=== PATIENT | female | born 1955 | race Caucasian/White ===

== ENCOUNTER 2019-03-05 21:12 | Emergency (ER) | payer OTHER ==
[2019-03-05 22:27] LABS: Absolute Lymphocytes (CBC) 0.5 K/uL (0.7-4.9); Basophils % 0.3 % (0-1.3); Eosinophils % 3.5 % (0-4.4); Hematocrit 38.8 % (36.0-45.0); Lymphocytes % 8.3 % (15.3-44.8); MPV 9.2 fL (7.6-11.3); Monocytes % 9.8 % (3.3-12.3); RBC Red Blood Cell Count 4.34 M/uL (3.86-4.86)
[2019-03-05 22:30] LABS: Protime INR 0.98
[2019-03-05 22:58] LABS: ALT/SGPT 193 U/L (12-78); Albumin 3.2 g/dL (3.4-5.0); Alkaline Phosphatase 154 U/L (45-117); BUN Blood Urea Nitrogen 24 mg/dL (7-18); Bicarbonate 29 mmol/L (21-32); Bilirubin Direct 0.1 mg/dL (0-0.2); Bilirubin Total 0.4 mg/dL (0.2-1.0); Glucose Level 113 mg/dL (74-106); Magnesium 2.2 mg/dL (1.8-2.4); NT PRO-BNP 310 pg/mL (<125); Potassium 3.8 mmol/L (3.5-5.1); Protein, Total 6.8 g/dL (6.4-8.2); Sodium Level 143 mmol/L (136-145)
[2019-03-05 22:59] LABS: AST/SGOT 642 U/L (15-37); Troponin (Emerg Dept Use Only) 1.85 ng/mL (0.0-0.045)
[2019-03-06] MEDS ORDERED: ASPIRIN 81 MG CHEWABLE TABLET ONE (00:12)
--- NOTE | 2019-03-06 00:25 | EDPHYS ---
Physician Documentation [facility] Name: Hannah Astudillo Age: 63 yrs Sex: Female : 1955 Arrival Date: 03/05/2019 Time: 21:14 Bed 25 Private MD: ED Physician Guy Rojo HPI: 03/06 00:29 This 63 yrs old Female presents to ER via Wheelchair with complaints of gs Shortness Of Breath, Blurred Vision. 00:29 This 63 yrs old Female presents to ER via Wheelchair with complaints of gs Shortness Of Breath, Blurred Vision. 00:29 The patient has shortness of breath at rest, during heavy activity. Onset: The gs symptoms/episode began/occurred 2 day(s) ago, Thursday about 9 pm. Duration: The symptoms are continuous. The patient's shortness of breath is aggravated by exertion. Associated signs and symptoms: Pertinent positives: visual changes, Pertinent negatives: chest pain, diaphoresis, vomiting. Severity of symptoms: At their worst the symptoms were severe in the emergency department the symptoms are unchanged. The patient has experienced similar episodes in the past, a few times. oncologist in [place] 4 days ago. Historical: - Allergies: 03/05 21:16 No Known Allergies; la1 - Home Meds: 03/06 00:03 ProAir HFA 90 mcg/actuation inhalation HFAA 2 puffs as needed [Active]; Flonase 50 fc mcg/actuation Nasal spsn 1 spray as needed [Active]; loratadine 10 mg oral tab 1 tab daily prn [Active]; Chemo for Liver CA [Active]; - PMHx: 03/05 21:16 liver ca; Asthma; la1 - PSHx: 03/06 00:03 right chest wall port a cath; fc - Immunization history:: Adult Immunizations up to date. - Social history:: Smoking status: Patient uses tobacco products, smokes one-half pack cigarettes per day. - Ebola Screening: : No symptoms or risks identified at this time. ROS: 00:29 All other systems are negative. gs Exam: 00:29 Head/Face: Normocephalic, atraumatic. ENT: Nares patent. No nasal discharge, no gs septal abnormalities noted. Tympanic membranes are normal and external auditory canals are clear. Oropharynx with no redness, swelling, or masses, exudates, or evidence of obstruction, uvula midline. Mucous membranes moist. Neck: Trachea midline, no thyromegaly or masses palpated, and no cervical lymphadenopathy. Supple, full range of motion without nuchal rigidity, or vertebral point tenderness. No Meningismus. Chest/axilla: Normal chest wall appearance and motion. Nontender with no deformity. No lesions are appreciated. Respiratory: Lungs have equal breath sounds bilaterally, clear to auscultation and percussion. No rales, rhonchi or wheezes noted. No increased work of breathing, no retractions or nasal flaring. Abdomen/GI: Soft, non-tender, with normal bowel sounds. No distension or tympany. No guarding or rebound. No evidence of tenderness throughout. Back: No spinal tenderness. No costovertebral tenderness. Full range of motion. Skin: Warm, dry with normal turgor. Normal color with no rashes, no lesions, and no evidence of cellulitis. MS/ Extremity: Pulses equal, no cyanosis. Neurovascular intact. Full, normal range of motion. 00:29 Constitutional: The patient appears alert, awake. 00:29 Eyes: Extraocular movements: decrease upward downward gaze. binocular diploplia on exam. 00:29 Cardiovascular: Rate: tachycardic, Rhythm: regular, Pulses: no pulse deficits are appreciated, Edema: 1+ edema to level of left ankle and right ankle. 00:29 ECG was reviewed by the Attending Physician. 00:29 Neuro: Orientation: is normal, Cranial nerves: normal except eom, Motor: moves all fours, Sensation: no obvious gross deficits. Vital Signs: 03/05 21:19 BP 164 / 88; Pulse 88; Resp 16; Temp 97.6; Pulse Ox 97% on R/A; Weight 102.51 kg; la1 Height 5 ft. 5 in. (165.10 cm); 22:38 BP 152 / 65; Pulse 100; Resp 19; Pulse Ox 96% on R/A; rv 23:36 BP 122 / 57; Pulse 95; Resp 19; Pulse Ox 94% on R/A; rv 03/06 00:00 BP 111 / 66; Pulse 99; Resp 19; Pulse Ox 95% on R/A; rv 01:18 BP 125 / 76; Pulse 103; Resp 21; Temp 97.8; Pulse Ox 96% on R/A; rv 03/05 21:19 Body Mass Index 37.61 (102.51 kg, 165.10 cm) la1 NIH Stroke Scale Scores: 00:38 NIHSS Score: 0 gs MDM: 03/05 21:51 Patient medically screened. 03/06 00:29 Differential diagnosis: CHF exacerbation, Chronic Obstructive Pulmonary Disease gs Myocardial Infarction cva, neoplasm. Data reviewed: vital signs, nurses notes, lab test result(s), EKG, radiologic studies. Counseling: I had a detailed discussion with the patient and/or guardian regarding: the historical points, exam findings, and any diagnostic results supporting the discharge/admit diagnosis, the need to transfer to another facility. ED course: no tpa, no obvious stroke, outside window symptoms over 12 hours. 03/05 21:52 Order name: Basic Metabolic Panel; Complete Time: 23:05 03/05 21:52 Order name: CBC with Diff; Complete Time: 23: 03/05 21:52 Order name: LFT's; Complete Time: 23: 03/05 21:52 Order name: Magnesium; Complete Time: 23: 03/05 21:52 Order name: NT PRO-BNP; Complete Time: 23: 03/05 21:52 Order name: PT-INR; Complete Time: 23: 03/05 21:52 Order name: CT Head Brain wo Cont 03/05 21:52 Order name: Troponin (emerg Dept Use Only); Complete Time: 23:05 03/05 21:52 Order name: XRAY Chest (1 view) 03/05 21:52 Order name: EKG; Complete Time: 21:54 03/05 21:52 Order name: Cardiac monitoring; Complete Time: 22:32 03/05 21:52 Order name: EKG - Nurse/Tech; Complete Time: 22:32 03/05 21:52 Order name: IV Saline Lock; Complete Time: 22:32 03/05 21:52 Order name: Labs collected and sent; Complete Time: 22:32 03/05 21:52 Order name: O2 Per Protocol; Complete Time: 22:32 03/05 21:52 Order name: O2 Sat Monitoring; Complete Time: 22:32 EC:29 Rate is 103 beats/min. Rhythm is regular. [place] interval is normal. QRS interval is gs normal. No ST changes noted. Clinical impression: NSR w/ Non-specific ST/T Changes. Interpreted by me. Administered Medications: 00:06 Drug: Aspirin Chewable Tablet 324 mg Route: PO; rv 01:20 Follow up: Response: No adverse reaction rv 00:44 Drug: Atorvastatin 20 mg Route: PO; rv 01:20 Follow up: Response: No adverse reaction rv Disposition: 00:39 Critical Care:. gs Disposition: 03/06/19 00:24 Transfer ordered to [facility]. Diagnosis are Non-ST elevation (NSTEMI) myocardial infarction, Diplopia. - Reason for transfer: Higher level of care. - Accepting physician is changela. - Condition is Stable. - Problem is new. - Symptoms have improved. Critical care time excluding procedures: 00:39 Critical care time: Bedside Care: 10 minutes, Consultation: 10 minutes, Family gs Intervention: 10 minutes. Total time: 30 minutes NIH Stroke Scale - NIH Stroke Score Date: 03/06/2019 Time: 00:38 Total Score = 0 1a. Level of Consciousness (LOC) - 0(Alert) 1b. Level of Consciousness (LOC) (Year \T\ Age) - 0(Both) 1c. LOC Commands (Open \T\ Closes Eyes/Set Builder) - 0(Both) 2. Best Gaze (Lateral Gaze Paresis) - 0(Normal) 3. Visual Field Loss - 0(No visual loss) 4. Facial Palsy - 0(Normal) 5a. Left Arm: Motor (10-second hold) - 0(No drift) 5b. Right Arm: Motor (10-second hold) - 0(No drift) 6a. Left Leg: Motor (5-second hold - always test supine) - 0(No drift) 6b. Right Leg: Motor (5-second hold - always test supine) - 0(No drift) 7. Limb Ataxia (finger/nose \T\ heel/hebert - test with eyes open) - 0(Absent) 8. Sensory Loss (pinprick arms/legs/face) - 0(Normal) 9. Best Language: Aphasia (description/naming/reading) - 0(No aphasia) 10. Dysarthria (speech clarity - read or repeat words) - 0(Normal) 11. Extinction and Inattention (visual/tactile/auditory/spatial/personal) - 0(No abnormality) Initials: gs Signatures: Dispatcher [employer] Jackie Yu RN RN Miguel Layne RN RN la1 Guy Rojo MD MD gs Vicente, Ronaldo, RN RN rv Corrections: (The following items were deleted from the chart) 01:21 00:24 03/06/2019 00:24 Transfer ordered to [facility]. rv Diagnosis is Non-ST elevation (NSTEMI) myocardial infarction; Diplopia. Reason for transfer: Higher level of care. Accepting physician is changela. Condition is Stable. Problem is new. Symptoms have improved. gs
--- NOTE | 2019-03-06 00:25 | ER ---
Nurse's Notes [facility] Name: Hannah Astudillo Age: 63 yrs Sex: Female : 1955 Arrival Date: 03/05/2019 Time: 21:14 Bed 25 Private MD: Diagnosis: Non-ST elevation (NSTEMI) myocardial infarction;Diplopia Presentation: 03/05 21:16 Presenting complaint: Patient states: I am on optivo and I started having SOB and la1 visual changes yesterday. Pt reports it is like looking through a kaleidoscope. VAN negative. Transition of care: patient was not received from another setting of care. Onset of symptoms was March 05, 2019. Risk Assessment: Do you want to hurt yourself or someone else? Patient reports no desire to harm self or others. Initial Sepsis Screen: Does the patient meet any 2 criteria? No. Patient's initial sepsis screen is negative. Does the patient have a suspected source of infection? No. Patient's initial sepsis screen is negative. Care prior to arrival: None. 21:16 Method Of Arrival: Wheelchair la1 21:16 Acuity: RAUDEL 2 la1 Triage Assessment: 21:39 General: Appears in no apparent distress. uncomfortable. Respiratory: Reports shortness rv of breath at rest Onset: The symptoms/episode began/occurred gradually, the patient has mild shortness of breath. Historical: - Allergies: 21:16 No Known Allergies; la1 - Home Meds: 03/06 00:03 ProAir HFA 90 mcg/actuation inhalation HFAA 2 puffs as needed [Active]; Flonase 50 fc mcg/actuation Nasal spsn 1 spray as needed [Active]; loratadine 10 mg oral tab 1 tab daily prn [Active]; Chemo for Liver CA [Active]; - PMHx: 03/05 21:16 liver ca; Asthma; la1 - PSHx: 03/06 00:03 right chest wall port a cath; fc - Immunization history:: Adult Immunizations up to date. - Social history:: Smoking status: Patient uses tobacco products, smokes one-half pack cigarettes per day. - Ebola Screening: : No symptoms or risks identified at this time. Screenin/29 21:38 Abuse screen: Denies threats or abuse. Denies injuries from another. Nutritional rv screening: No deficits noted. Tuberculosis screening: No symptoms or risk factors identified. Fall Risk None identified. Assessment: 21:37 General: Appears in no apparent distress. uncomfortable, Behavior is calm, cooperative. rv Pain: Complains of pain in generalized. Neuro: Level of Consciousness is awake, alert, obeys commands, Oriented to person, place, time, situation. Cardiovascular: Patient's skin is warm and dry. Rhythm is regular. Respiratory: Airway is patent Respiratory effort is even, GI: Abdomen is round obese. : No signs and/or symptoms were reported regarding the genitourinary system. EENT: No signs and/or symptoms were reported regarding the EENT system. Derm: Skin is intact. Musculoskeletal: No signs and/or symptoms reported regarding the musculoskeletal system. 22:39 Reassessment: Patient appears in no apparent distress at this time. Patient and/or rv family updated on plan of care and expected duration. Pain level reassessed. Patient is alert, oriented x 3, equal unlabored respirations, skin warm/dry/pink. just came back from CT scan. awaiting result. Vital Signs: 21:19 BP 164 / 88; Pulse 88; Resp 16; Temp 97.6; Pulse Ox 97% on R/A; Weight 102.51 kg; la1 Height 5 ft. 5 in. (165.10 cm); 22:38 BP 152 / 65; Pulse 100; Resp 19; Pulse Ox 96% on R/A; rv 23:36 BP 122 / 57; Pulse 95; Resp 19; Pulse Ox 94% on R/A; rv 03/06 00:00 BP 111 / 66; Pulse 99; Resp 19; Pulse Ox 95% on R/A; rv 01:18 BP 125 / 76; Pulse 103; Resp 21; Temp 97.8; Pulse Ox 96% on R/A; rv 03/05 21:19 Body Mass Index 37.61 (102.51 kg, 165.10 cm) la1 NIH Stroke Scale Scores: 00:38 NIHSS Score: 0 ED Course: 03/05 21:14 Patient arrived in ED. as 21:17 Triage completed. la1 21:17 Arm band placed on left wrist. la1 21:20 Guy Rojo MD is Attending Physician. gs 21:22 Elie, Leonardo, RN is Primary Nurse. rv 21:38 Patient has correct armband on for positive identification. Bed in low position. Call rv light in reach. Side rails up X 1. Pulse ox on. NIBP on. 22:10 XRAY Chest (1 view) In Process Unspecified. EDMS 22:22 Initial lab(s) drawn, by me, sent to lab. Accessed Port-a-Cath. using accessed w/ # 20 rv Yen needle, ,sterile technique, per hospital protocol. Clean \T\ dry. Good blood return. Flushes easily. 22:32 CT Head Brain wo Cont Sent. rv 22:55 CT Head Brain wo Cont In Process Unspecified. EDMS 22:59 Notified ED physician of a critical lab result(s). ast of 642, trop 1.85. fc 03/06 01:19 No provider procedures requiring assistance completed. Patient transferred, IV remains rv in place. Administered Medications: 00:06 Drug: Aspirin Chewable Tablet 324 mg Route: PO; rv 01:20 Follow up: Response: No adverse reaction rv 00:44 Drug: Atorvastatin 20 mg Route: PO; rv 01:20 Follow up: Response: No adverse reaction rv Outcome: 00:24 ER care complete, transfer ordered by . gs 01:20 Transferred by ground EMS to [facility], Transfer form completed. rv X-rays sent w/ patient. 01:20 Condition: stable 01:20 Instructed on the need for transfer. 01:21 Patient left the ED. rv NIH Stroke Scale - NIH Stroke Score Date: 03/06/2019 Time: 00:38 Total Score = 0 1a. Level of Consciousness (LOC) - 0(Alert) 1b. Level of Consciousness (LOC) (Year \T\ Age) - 0(Both) 1c. LOC Commands (Open \T\ Closes Eyes/Supervisor Incising) - 0(Both) 2. Best Gaze (Lateral Gaze Paresis) - 0(Normal) 3. Visual Field Loss - 0(No visual loss) 4. Facial Palsy - 0(Normal) 5a. Left Arm: Motor (10-second hold) - 0(No drift) 5b. Right Arm: Motor (10-second hold) - 0(No drift) 6a. Left Leg: Motor (5-second hold - always test supine) - 0(No drift) 6b. Right Leg: Motor (5-second hold - always test supine) - 0(No drift) 7. Limb Ataxia (finger/nose \T\ heel/hebert - test with eyes open) - 0(Absent) 8. Sensory Loss (pinprick arms/legs/face) - 0(Normal) 9. Best Language: Aphasia (description/naming/reading) - 0(No aphasia) 10. Dysarthria (speech clarity - read or repeat words) - 0(Normal) 11. Extinction and Inattention (visual/tactile/auditory/spatial/personal) - 0(No abnormality) Initials: Signatures: Dispatcher [employer] EDMS Jackie Antonio RN RN Siena Ocampo Lee, RN RN la1 Guy Rojo MD MD gs Vicente, Ronaldo, RN RN rv
[2019-03-06] MEDS ORDERED: ATORVASTATIN 20 MG TAB ONE (00:46)
--- NOTE | 2019-03-06 10:01 | EKG ---
Test Date: 2019-03-05 Test Time: 22:03:07 Electric Brain Wave Equipment Mechanic: JEFFT MEASUREMENT RESULTS: Intervals: Rate: 103 VT: 166 QRSD: 54 QT: 340 QTc: 445 Barnett: P: 60 VT: 166 QRS: 39 T: 47 INTERPRETIVE STATEMENTS: Sinus tachycardia with occasional premature ventricular complexes and fusion complexes Low voltage QRS Borderline ECG No previous ECG available for comparison Electronically Signed On 03-06-19 10:00:28 CDT by Pipe Banuelos
--- NOTE | 2019-03-06 10:52 | RAD REPORT ---
EXAM DESCRIPTION: RAD - Chest Single View - 03/05/2019 10:11 pm CLINICAL HISTORY: MALAISE Chest pain. COMPARISON: No comparisonsNo comparisons FINDINGS: Portable technique limits examination quality. The lungs are grossly clear. The heart is normal in size. Right-sided port catheter has tip in the ri ght atrium. IMPRESSION: No acute intrathoracic process suspected.
--- NOTE | 2019-03-07 11:39 | RAD REPORT ---
EXAM DESCRIPTION: Head Brain Wo Cont CLINICAL HISTORY: 63 years Female VISUAL DISTURBANCES COMPARISON: None TECHNIQUE: Contiguous axial images of the brain were obtained without the administration of intraven ous contrast.This exam was performed according to our departmental dose-optimization program which in cludes use of Automated Exposure Control, adjustment of the mA and/or kV according to patient size an d/or use of iterative reconstruction technique. FINDINGS: Brain: No acute intracranial hemorrhage. No extra-axial collection. No mass effect or bairon iation. Mild prominence of the sulci and cisterns Confluent periventricular and subcortical white m atter hypodensity is noted. Ventricles: Within normal limits in size. Globes and orbits: No acute abnormality. Bones: No acute osseous finding. Paranasal sinuses: Paranasal sinuses are clear. Mastoid air cells: Well pneumatized. Soft tissues: Within normal limits IMPRESSION: No acute intracranial hemorrhage, hydrocephalus or herniation. If persistent clinical co ncern for acute ischemia, consider MRI brain without contrast for further evaluation. Electronically signed by: Camron Rivera DO 03/05/2019 11:12 PM CDT Due to temporary technical issues with the PACS/Fluency reporting system, reports are being signed by the in house radiologist as a courtesy to ensure prompt reporting. The interpreting radiologist is f ully responsible for the content of the report.
== END 2019-03-06 01:21 | disposition short-term general hospital (02) ==
LOC: ER 21:12
DX: I21.4 Non-ST elevation (NSTEMI) myocardial infarction (principal); H53.2 Diplopia; F17.210 Nicotine dependence, cigarettes, uncomplicated
CPT/HCPCS: 36415; 70450; 71045; 80048; 80076; 83735; 83880; 84484; 85025; 85610; 93005; 99285